=== PATIENT | female | born 1945 | race Caucasian/White ===

== ENCOUNTER → 2018-02-21 | Outpatient (CLI) | payer OTHER ==
[~2018-02-21] MED LIST: ASPIRIN81 M2 PO; BIOTIN2500 MCG PO; CALCIUM CITRAT250 MG PO; CENTRUM SILVER1 EAC3 PO; CLARITIN10 M2 PO; CYCLOBENZAPRINE10 MG PO; DESONIDE 0.05%; DOXYCYCLINE 10100 M1 PO; FISH OIL 1,2001 EAC4 PO; FLUOCINONI0.05 %/30; FOSAMAX 35 MG35 MG PO; FOSAMAX 70 MG T70 M1 PO; IBUPROFEN 200200 M1 PO; KRILL OIL500 MG PO; LISINOPRIL20 MG PO; MOBIC15 MG PO; PRILOSEC40 MG PO; SIMVASTATIN20 MG PO; [UNRECOGNIZED DRUG - OTHER]; [UNRECOGNIZED DRUG - OTHER]
== END ==
LOC: M.RAD 08:24
DX: Z12.31 Encounter for screening mammogram for malignant neoplasm of breast (principal)

== ENCOUNTER → 2018-02-27 | Outpatient (CLI) | payer OTHER | LOC: M.RAD 12:47 | DX: N60.02 Solitary cyst of left breast (principal); N63.20 Unspecified lump in the left breast, unspecified quadrant; R92.8 Other abnormal and inconclusive findings on diagnostic imaging of breast ==

== ENCOUNTER → 2018-08-29 | Outpatient (CLI) | payer OTHER | LOC: M.RAD 14:12 | DX: M85.80 Other specified disorders of bone density and structure, unspecified site (principal) ==

== ENCOUNTER → 2019-06-19 | Outpatient (CLI) | payer OTHER | LOC: M.RAD 10:09 | DX: Z12.31 Encounter for screening mammogram for malignant neoplasm of breast (principal) ==